=== PATIENT | male | born 1995 | race Two or more races ===

== ENCOUNTER 2023-05-28 06:00 | Emergency (ER) | payer MEDICAID, OTHER ==
[~2023-05-28] VITALS: Ht 180.3 cm; Wt 71.1 kg
[2023-05-28 06:49] VITALS: TEMP 98.4
[2023-05-28 07:22] LABS: Urine Bacteria NONE SEEN /hpf (None Seen); Urine Blood Negative /uL (Negative); Urine Clarity Clear (Clear); Urine Protein, UAD Negative (Negative); Urine Specific Gravity 1.005 (1.001-1.035); Urine Urobilinogen Normal (Negative); Urine WBC <1 /hpf (0 - 3); Urine pH 5.5 (5.0-8.0)
[2023-05-28 07:29] LABS: Urine Color Straw (Yellow)
[2023-05-28] MEDS ORDERED: AZITHROMYCIN 250 MG TAB PO ONE ×2 (08:00→08:03)
[2023-05-28] MEDS ORDERED: cefTRIAXone SOD 500 MG VL IM ONE (08:00)
[2023-05-28] MEDS ORDERED: cefTRIAXone SOD 500 MG VL ONE (08:02)
[2023-05-28] MEDS ORDERED: LIDOCAINE 1% HCL (LOCAL ANESTH.) INJ 20ML MDV ONE (08:04)
[2023-05-28 08:20] VITALS: BP 131/75; PULSE 74; RESP 14; O2SAT 100
== END 2023-05-28 08:29 | disposition home or self-care (01) ==
LOC: ER 06:00
DX: N39.0 Urinary tract infection, site not specified (principal); F12.10 Cannabis abuse, uncomplicated; Z20.2 Contact with and (suspected) exposure to infections with a predominantly sexual mode of transmission
CPT/HCPCS: 81001; 87491; 87591; 96372; 99283; J0696; J2001